=== PATIENT | female | born 1985 | race Caucasian/White ===

== ENCOUNTER 2016-10-01 10:51 | Emergency (ER) | payer MEDICAID ==
[2016-10-01 11:00] VITALS: BP 111/82; PULSE 103; RESP 16; TEMP 98.6; O2SAT 94
--- NOTE | 2016-10-01 12:37 | EDPHY ---
ED Progress Note Narrative: This patient left without being seen. I did not see this patient while she was in the emergency department.
== END 2016-10-01 12:26 | disposition left against medical advice (07) ==
DX: Z53.21 Procedure and treatment not carried out due to patient leaving prior to being seen by health care provider (principal)

== ENCOUNTER 2016-10-02 05:22 | Emergency (ER) | payer MEDICAID ==
[2016-10-02] MEDS ORDERED: methylPREDNISolone SOD SUCC 125 MG/2 ML VIAL IVP ONE (05:27)
[2016-10-02] MEDS ORDERED: FAMOTIDINE 20 MG/2 ML SDV IVP ONE (05:27)
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
[2016-10-02] MEDS ORDERED: FAMOTIDINE 20 MG TAB ONE (05:41)
[2016-10-02] MEDS ORDERED: predniSONE 20 MG TAB ONE (05:41)
[2016-10-02] MEDS ORDERED: predniSONE 20 MG TAB PO ONE (05:46)
[2016-10-02] MEDS ORDERED: FAMOTIDINE 20 MG TAB PO ONE (05:46)
[2016-10-02 08:51] VITALS: BP 114/73; PULSE 74; RESP 16; TEMP 97.5; O2SAT 98
== END 2016-10-02 08:48 | disposition home or self-care (01) ==
LOC: EDUNIT#
DX: T78.2XXA Anaphylactic shock, unspecified, initial encounter (principal)